=== PATIENT | female | born 1985 | race Caucasian/White ===

== ENCOUNTER → 2022-03-16 12:51 | Outpatient (BNVA) | payer OTHER, SELFPAY | PROVIDERS: PCP Internal Medicine; Visit Provider Advanced Practice Midwife | DX: E28.2 Polycystic ovarian syndrome (principal); N93.9 Abnormal uterine and vaginal bleeding, unspecified; E66.01 Morbid (severe) obesity due to excess calories; Z68.41 Body mass index [BMI] 40.0-44.9, adult | CPT/HCPCS: 99202 ==

== ENCOUNTER 2022-04-01 12:40 | Outpatient (REF) | payer OTHER, SELFPAY ==
--- NOTE | ~2022-04-01 | US_ITS ---
EXAMINATION: US PELVIS COMPLETE CLINICAL INFORMATION: Abnormal uterine bleeding COMPARISON: Pelvic ultrasound 08/07/2018 TECHNIQUE: Transabdominal and transvaginal imaging was performed. FINDINGS: The uterus is of normal size and echogenicity measuring 9.2 x 2.8 x 3.6 cm. A regular homogeneous endometrium is identified measuring 0.5 cm. Nabothian cysts in the cervix. The right ovary is of normal size and echogenicity. The right measures 3.4 x 1.9 x 1.7 cm for a volume of 5.7 mL. The left measures 4.4 x 2.9 x 2.7 cm for a volume of 18.0 mL. The left ovary is remarkable for a 1.4 x 1.5 x 1.4 cm hyperechoic avascular mass suggestive of an ovarian dermoid. There is no pelvic free fluid. US/US pelvic and transvaginal IMPRESSION: A 1.5 cm hyperechoic avascular left ovarian mass suggestive of an ovarian dermoid. Recommend contrast-enhanced MR pelvis for further evaluation. If not surgically resected, recommend annual follow-up ultrasound.
[2022-04-01 13:18] LABS: Hematocrit 39.6 % (37.0-47.0); Hemoglobin 12.8 g/dl (12.0-16.0); Mean Corpuscular HGB Conc 32.3 g/dl (31.0-35.0); Mean Corpuscular Hemoglobin 26.8 pg (27.0-33.0); Mean Platelet Volume 10.7 fL (9.4-12.3); Platelet Count 314 X10*3/uL (160-400); Red Blood Count 4.77 X10*6/uL (4.20-5.50); Red Cell Distribution Width 14.5 % (11.0-16.0)
[2022-04-01 14:17] LABS: HCG Quantitative < 2 mIU/mL; TSH reflex Free T4 1.92 uIU/mL (0.32-4.0)
== END 2022-04-01 12:41 | disposition home or self-care (01) ==
LOC: HO.US 12:40
PROVIDERS: PCP Internal Medicine; Visit Provider Advanced Practice Midwife
DX: N93.9 Abnormal uterine and vaginal bleeding, unspecified (principal); E28.2 Polycystic ovarian syndrome
CPT/HCPCS: 36415; 76830; 76856; 84443; 84702; 85027

== ENCOUNTER 2022-04-07 12:59 | Outpatient (REF) | payer OTHER, SELFPAY ==
[2022-04-07 14:27] LABS: Glucose Random 107 mg/dL (60-115)
[2022-04-07 14:37] LABS: HCG Quantitative < 2 mIU/mL
[2022-04-07 14:47] LABS: Estimated Average Glucose 128 mg/dL; Hemoglobin A1C 149.0478 umol/L; Hemoglobin A1c % 6.1 %
[2022-04-11 13:08] LABS: CA-125 74 U/mL (<35)
[2022-04-13 14:48] LABS: Testosterone, Free 12.9 pg/mL (0.1-6.4); Testosterone, Total 81 ng/dL (2-45)
== END 2022-04-07 13:00 | disposition home or self-care (01) ==
LOC: HO.LAB 12:59
PROVIDERS: PCP Internal Medicine; Visit Provider Advanced Practice Midwife
DX: E28.2 Polycystic ovarian syndrome (principal); E66.01 Morbid (severe) obesity due to excess calories; N93.9 Abnormal uterine and vaginal bleeding, unspecified; N83.8 Other noninflammatory disorders of ovary, fallopian tube and broad ligament
CPT/HCPCS: 36415; 82947; 83036; 83498; 84402; 84403; 84702; 86304

== ENCOUNTER 2022-04-21 08:01 | Outpatient (REF) | payer OTHER, SELFPAY ==
--- NOTE | ~2022-04-21 | MR_ITS ---
EXAMINATION: MRI PELVIS WITH AND WITHOUT CONTRAST CLINICAL INFORMATION: Reason for Exam N83.8 - Other noninflammatory disorders of ovary, fallopian tube and bro... COMPARISON: Pelvic ultrasound 04/01/2022 TECHNIQUE: Multiple routine MRI sequences through the pelvis were obtained before and after the uneventful administration of 10 mL of Gadavist gadolinium-based IV contrast. FINDINGS: UTERUS: The uterus is anteverted. The uterus measures 8.8 x 2.6 x 4.2 cm. The endometrial stripe measures 4 mm in thickness. Junctional zone is normal in signal and thickness. No focal uterine mass seen. CERVIX: Nabothian cysts. VAGINA: Unremarkable. RIGHT OVARY: The right ovary contains a cystic and solid mass containing fat measuring 11.4 x 7.3 x 10.1 cm. There is a fat fluid level. No significant enhancement following intravenous contrast administration. There are small peripherally displaced follicles confirming the origin from the right ovary. LEFT OVARY: The left ovary appears enlarged measuring 5.1 x 3.3 x 3.5 cm with peripherally displaced uniform follicles. 1.3 cm focus of T2 hyperintensity with fat suppression may represent a small lipoma/dermoid. KIDNEYS: Two normally positioned kidneys are seen. No hydronephrosis. BLADDER: Urinary bladder normal. PELVIC FREE FLUID: No free fluid or ascites. LYMPH NODES: No pathologically enlarged lymph nodes. MR/MR pelvis wo/w con IMPRESSION: 11.4 x 7.3 x 10.1 cm cystic and solid mass of the right ovary containing fat and exhibiting fat fluid level. This most likely represents an ovarian dermoid cyst. No significant enhancement following intravenous contrast administration. 1.3 cm lipoma/dermoid superior aspect of the left ovary. The left ovary is also enlarged with peripherally displaced follicles. Advise clinical correlation.
== END 2022-04-21 08:02 | disposition home or self-care (01) ==
LOC: HO.MRI 08:01
PROVIDERS: PCP Internal Medicine; Visit Provider Nurse Practitioner Family
DX: N83.8 Other noninflammatory disorders of ovary, fallopian tube and broad ligament (principal)
CPT/HCPCS: 72197; A9585

== ENCOUNTER → 2022-04-26 12:50 | Outpatient (BNVA) | payer OTHER, SELFPAY | PROVIDERS: PCP Internal Medicine; Visit Provider Advanced Practice Midwife | DX: Z13.89 Encounter for screening for other disorder (principal) ==

== ENCOUNTER 2022-11-09 10:11 | Outpatient (REF) | payer OTHER, SELFPAY ==
[2022-11-09 12:03] LABS: Cholesterol 180 mg/dL (<200); HDL Cholesterol 33 mg/dL (>40); LDL Cholesterol Calculated 111 mg/dL (<100); Triglycerides 180 mg/dL (<150)
[2022-11-09 12:05] LABS: Alanine Aminotransferase 13 U/L (0-31); Albumin Level 4.1 g/dL (3.5-5.0); Alkaline Phosphatase 81 U/L (39-117); Anion Gap 13 (12-20); Aspartate Amino Transferase 15 U/L (5-31); Bilirubin Total 0.3 mg/dL (0.0-1.0); Blood Urea Nitrogen 11 mg/dL (9-16); Calcium 9.5 mg/dL (8.4-10.2); Carbon Dioxide 23 mmol/L (22-29); Chloride 107 mmol/L (96-108); Estimated Glomerular Filt Rate > 60; Glucose Random 93 mg/dL (60-115); Potassium 3.8 mmol/L (3.3-5.1); Sodium 139 mmol/L (135-145); Total Protein 7.6 g/dL (6.5-8.0)
[2022-11-09 13:44] LABS: Reflex LDLD? No
[2022-11-11 17:39] LABS: TS Negative Control Passed; TS Panel A 0; TS Panel B 0; TS Positive Control Passed; TSpotTB Negative (Negative)
== END 2022-11-09 10:12 | disposition home or self-care (01) ==
LOC: HO.HHCL 10:11
PROVIDERS: Visit Provider Internal Medicine
DX: Z00.00 Encounter for general adult medical examination without abnormal findings (principal); Z11.1 Encounter for screening for respiratory tuberculosis; R73.01 Impaired fasting glucose; G43.709 Chronic migraine without aura, not intractable, without status migrainosus
CPT/HCPCS: 36415; 80053; 80061; 86481

== ENCOUNTER 2024-03-04 14:51 | Outpatient (REF) | payer OTHER, SELFPAY ==
[2024-03-07 10:22] LABS: TS Negative Control Passed; TS Panel A 0; TS Panel B 0; TS Positive Control Passed; TSpotTB Negative (Negative)
== END 2024-03-04 14:52 | disposition home or self-care (01) ==
LOC: HO.HHCL 14:51
PROVIDERS: Visit Provider Internal Medicine
DX: R73.01 Impaired fasting glucose (principal); G43.009 Migraine without aura, not intractable, without status migrainosus; Z11.1 Encounter for screening for respiratory tuberculosis
CPT/HCPCS: 36415; 86481